=== PATIENT | male | born 1955 | race Two or more races ===

== ENCOUNTER 2018-02-09 22:39 | Emergency (ER) | payer OTHER ==
[~2018-02-09] VITALS: Ht 172.7 cm; Wt 77.1 kg
[2018-02-10] MEDS ORDERED: MORPHINE SULFATE 4 MG/ML SYR/VIAL IV ONE (00:45)
[2018-02-10] MEDS ORDERED: ONDANSETRON HCL 4 MG/2 ML VIAL IV ONE (00:45)
[2018-02-10 00:53] LABS: Basophils # (auto) 0 uL; Eosinophils # (auto) 0.1 uL; Monocytes # (auto) 0.4 uL
[2018-02-10 00:55] LABS: Basophils % (auto) 0.8 % (0.0-2.0); Eosinophils % (auto) 1.7 % (0.0-7.0); Hematocrit 38.5 % (41.0-53.0); Lymphocytes % (auto) 23.7 % (10.0-50.0); Mean Corpuscular Hemoglobin 34.4 pg (28.0-32.0); Mean Corpuscular Hgb Conc. 33.7 g/dL (32.0-36.0); Mean Corpuscular Volume 102.1 fL (80.0-100.0); Monocytes % (auto) 10.6 % (0.0-12.0); Neutrophils # (auto) 2.5 uL; Neutrophils % (auto) 63.2 % (37.0-80.0); Platelet Count (auto) 70 10^3/uL (140-450); Red Blood Cells 3.77 10^6/uL (4.5-5.90); Red Cell Distribution Width 14.5 % (11.8-14.3)
[2018-02-10 01:04] LABS: Albumin 2.2 g/dL (3.4-5.0); BUN/Creatinine Ratio 12.2; Calcium 7.9 mg/dL (8.5-10.1)
[2018-02-10 01:07] LABS: Bilirubin, Total 2.3 mg/dL (0.2-1.0); Total Protein 6.3 g/dL (6.4-8.2)
[2018-02-10 01:09] LABS: Potassium 2.9 mmol/L (3.5-5.1)
[2018-02-10] MEDS ORDERED: POTASSIUM CHL 20 Meq TABLET PO ONE (02:15)
[2018-02-10] MEDS ORDERED: SPIRONOLACTONE 25 MG TAB PO ONE (03:00)
[2018-02-10] MEDS ORDERED: FUROSEMIDE 40 MG/4 ML VIAL IV ONE (03:00)
[2018-02-10 03:49] LABS: INR 1.31 (0.9-1.15); Partial Thromboplastin Time 29.6 sec (23.78-33.04); Prothrombin Time 13.8 sec (9.27-12.13)
[2018-02-10 05:04] LABS: Urine Amorphous Crystal FEW /hpf (None Seen); Urine Bacteria FEW /hpf (None Seen); Urine Blood Negative /uL (Negative); Urine Mucus FEW (None Seen); Urine Specific Gravity 1.009 (1.001-1.035); Urine WBC <1 /hpf (0 - 3)
[2018-02-10] MEDS ORDERED: LACTULOSE 20Gm/30ML SOLN PO ONE (05:30)
[2018-02-10] MEDS ORDERED: IOHEXOL 350 MG/ML 100ML IJ ONE (05:38)
[2018-02-10 10:32] LABS: Albumin 2.3 g/dL (3.4-5.0); Calcium 8.1 mg/dL (8.5-10.1); Potassium 3.1 mmol/L (3.5-5.1)
[2018-02-10 10:36] LABS: BUN/Creatinine Ratio 15.1; Bilirubin, Total 2.7 mg/dL (0.2-1.0); Total Protein 6.1 g/dL (6.4-8.2)
[2018-02-10] MEDS ORDERED: POTASSIUM EFFERVESENT TAB 25 MEQ PO ONE (10:45)
[2018-02-10 12:24] VITALS: BP 162/92
== END 2018-02-10 12:39 | disposition short-term general hospital (02) ==
LOC: ER 22:39 → EDBD 22:39 → ER 02-10 12:39
DX: K72.90 Hepatic failure, unspecified without coma (principal); R41.82 Altered mental status, unspecified; E87.6 Hypokalemia; D68.9 Coagulation defect, unspecified; R79.1 Abnormal coagulation profile; D69.6 Thrombocytopenia, unspecified; I10 Essential (primary) hypertension; E07.89 Other specified disorders of thyroid
CPT/HCPCS: 36415; 71045; 71275; 74176; 80053; 81001; 82140; 83690; 83880; 84484; 85025; 85379; 85610; 85730; 96374; 96375; 99285; J1940; J2270; J2405; Q9967

== ENCOUNTER 2018-02-19 15:22 | Emergency (ER) | payer OTHER ==
[~2018-02-19] VITALS: Ht 170.2 cm; Wt 88.5 kg
[2018-02-19 16:08] LABS: Basophils # (auto) 0 uL; Basophils % (auto) 0.6 % (0.0-2.0); Eosinophils # (auto) 0 uL; Eosinophils % (auto) 0.5 % (0.0-7.0); Lymphocytes # (auto) 0.5 uL; Neutrophils # (auto) 5.8 uL; Nucleated Red Blood Cells % 0.1 %; White Blood Cell 6.8 10^3/uL (4.4-10.8)
[2018-02-19 16:09] LABS: Hematocrit 43.5 % (41.0-53.0); Lymphocytes % (auto) 7.1 % (10.0-50.0); Mean Corpuscular Hemoglobin 34.9 pg (28.0-32.0); Mean Corpuscular Hgb Conc. 34.6 g/dL (32.0-36.0); Mean Corpuscular Volume 101.1 fL (80.0-100.0); Monocytes # (auto) 0.4 uL; Monocytes % (auto) 6.4 % (0.0-12.0); Neutrophils % (auto) 85.4 % (37.0-80.0); Platelet Count (auto) 80 10^3/uL (140-450); Red Cell Distribution Width 14.5 % (11.8-14.3)
[2018-02-19 16:24] LABS: Albumin 2.6 g/dL (3.4-5.0); Anion Gap 8 (5-15); Blood Urea Nitrogen 11 mg/dL (7-18); Calcium 8.3 mg/dL (8.5-10.1); Carbon Dioxide 25 mmol/L (21-32); Chloride 102 mmol/L (98-107); Glucose 92 mg/dL (74-106); Potassium 3.9 mmol/L (3.5-5.1); Sodium 135 mmol/L (136-145)
[2018-02-19 16:29] LABS: Alanine Aminotransferase 57 U/L (16-61); Alkaline Phosphatase 130 U/L (45-117); Aspartate Aminotransferase 76 U/L (15-37); BUN/Creatinine Ratio 12.5; Bilirubin, Total 3.2 mg/dL (0.2-1.0); GFR African American 113 mL/min; GFR Non-African American 94 mL/min
[2018-02-19] MEDS ORDERED: MORPHINE SULFATE 4 MG/ML SYR/VIAL IV ONE (21:00)
[2018-02-19] MEDS ORDERED: ONDANSETRON HCL 4 MG/2 ML VIAL IV ONE (21:00)
[2018-02-19] MEDS ORDERED: SODIUM CHLORIDE 0.9% 1,000 ML IV ONE (21:30)
[2018-02-19] MEDS ORDERED: LACTULOSE 20Gm/30ML SOLN PO ONE (22:30)
[2018-02-20 00:03] LABS: INR 1.29 (0.9-1.15); Partial Thromboplastin Time 30.2 sec (23.78-33.04); Prothrombin Time 13.6 sec (9.27-12.13)
[2018-02-20 00:03] LABS: Urine Bacteria FEW /hpf (None Seen); Urine Blood Negative /uL (Negative); Urine Hyaline Cast FEW /lpf (0 - 2); Urine Mucus FEW (None Seen); Urine Specific Gravity 1.024 (1.001-1.035); Urine WBC 2 /hpf (0 - 3)
[2018-02-20 00:10] VITALS: BP 106/55
[2018-02-20 00:15] LABS: Alcohol, Urine < 3.0 mg/dL (0-5); Amphetamine Screen, Urine NEGATIVE (NEGATIVE); Barbiturate Scree,Urine NEGATIVE (NEGATIVE); Benzodiazephine Screen, Urine NEGATIVE (NEGATIVE); Cannabinoid Screen, Urine POSITIVE (NEGATIVE); Cocaine Screen, Urine NEGATIVE (NEGATIVE); Opiate Scree,Urine POSITIVE (NEGATIVE); Phencyclidine Screen, Urine NEGATIVE (NEGATIVE)
[2018-02-20] MEDS ORDERED: PROMETHAZINE HCL 25 MG/ML 1ML IM ONE (00:45)
== END 2018-02-20 01:00 | disposition home or self-care (01) ==
LOC: EDBD 15:22 → ER 15:22
DX: K29.70 Gastritis, unspecified, without bleeding (principal); K70.31 Alcoholic cirrhosis of liver with ascites; K80.20 Calculus of gallbladder without cholecystitis without obstruction; F10.10 Alcohol abuse, uncomplicated; I11.0 Hypertensive heart disease with heart failure; I50.9 Heart failure, unspecified; E07.89 Other specified disorders of thyroid; E78.5 Hyperlipidemia, unspecified; Y90.0 Blood alcohol level of less than 20 mg/100 ml
CPT/HCPCS: 36415; 74176; 80053; 80307; 80320; 81001; 82140; 83690; 84484; 85025; 85610; 85730; 93005; 96361; 96372; 96374; 96375; 99284; J2270; J2405; J2550; J7030

== ENCOUNTER 2018-03-29 17:17 | Emergency (ER) | payer OTHER ==
[~2018-03-29] VITALS: Ht 170.2 cm; Wt 81.6 kg
[2018-03-29 17:41] VITALS: BP 76/71
== END 2018-03-29 18:15 | disposition left against medical advice (07) ==
LOC: ER 17:17 → EDBD 17:17 → EDUNIT# 17:17 → ER 18:15
DX: R10.9 Unspecified abdominal pain (principal); K92.0 Hematemesis; Z53.21 Procedure and treatment not carried out due to patient leaving prior to being seen by health care provider
CPT/HCPCS: 93005

== ENCOUNTER 2018-04-01 08:05 | Inpatient (IN) | payer OTHER ==
[2018-04-01] VITALS (59 sets, daily range): BP systolic 32–167; BP diastolic 28–101
[~2018-04-01] VITALS: Ht 170.2 cm; Wt 103.0 kg
[2018-04-01] MEDS ORDERED: SODIUM CHLORIDE 0.9% 1,000 ML IV ONE ×2 (08:13)
[2018-04-01] MEDS ORDERED: PANTOPRAZOLE 80 MG in SODIUM CHL 0.9% 60 ML IV ONE (08:15)
[2018-04-01 08:31] LABS: Eosinophils # (auto) 0 uL; Monocytes # (auto) 0.7 uL; Nucleated Red Blood Cells % 0.2 %; Red Blood Cells 1.06 10^6/uL (4.0-5.20)
[2018-04-01 08:33] LABS: Basophils # (auto) 0.1 uL; Basophils % (auto) 0.8 % (0.0-2.0); Eosinophils % (auto) 0.2 % (0.0-7.0); Hematocrit 11.6 % (36.0-46.0); Lymphocytes % (auto) 26.5 % (10.0-50.0); Mean Corpuscular Hemoglobin 36.2 pg (28.0-32.0); Mean Corpuscular Volume 109.6 fL (80.0-100.0); Monocytes % (auto) 9.4 % (0.0-12.0); Neutrophils # (auto) 4.7 uL; Neutrophils % (auto) 63.1 % (37.0-80.0); Platelet Count (auto) 66 10^3/uL (140-450); Red Cell Distribution Width 17.9 % (11.8-14.3); White Blood Cell 7.5 10^3/uL (4.4-10.8)
[2018-04-01 08:48] LABS: BUN/Creatinine Ratio 28.8
[2018-04-01 08:51] LABS: Hemoglobin 3.8 g/dL (12.2-16.2)
[2018-04-01 08:52] LABS: Bilirubin, Total 1.5 mg/dL (0.2-1.0); Total Protein 3.4 g/dL (6.4-8.2)
[2018-04-01 08:53] LABS: INR 2.52 (0.9-1.15); Partial Thromboplastin Time 42.3 sec (23.78-33.04); Prothrombin Time 25.6 sec (9.27-12.13)
[2018-04-01] MEDS ORDERED: SUCCINYLCHOLINE CHLORIDE 20 MG/ML 10ML VIAL IV ONE ×2 (09:22→10:00)
[2018-04-01] MEDS ORDERED: ETOMIDATE (2MG/ML) 20ML VIAL IV ONE ×2 (09:22→10:00)
[2018-04-01] MEDS ORDERED: NOREPINEPHRINE 8 MG/250ML KIT 250 ML IV ONE (09:23)
[2018-04-01] MEDS ORDERED: MIDAZOLAM DRIP 50 mg/50mL 50 ML IV ONE ×2 (09:24→09:32)
[2018-04-01] MEDS: MIDAZOLAM DRIP 50 mg/50mL 50 ML IV SCH ×2 (09:32→23:27)
[2018-04-01] MEDS ORDERED: NOREPINEPHRINE 8 MG/250ML KIT 250 ML IV SCH (10:00)
[2018-04-01] MEDS ORDERED: HETASTARCH 500 ML IV ONE (11:00)
[2018-04-01] MEDS ORDERED: SODIUM BICARBONATE 8.4 % INJ 50ML VIAL IV ONE ×2 (11:00→16:45)
[2018-04-01] MEDS: NOREPINEPHRINE 8 MG/250ML KIT 250 ML IV SCH ×2 (11:11→19:55)
[2018-04-01] MEDS ORDERED: NITROGLYCERIN 0.4 MG SL TAB SL PRN (11:15)
[2018-04-01] MEDS ORDERED: SODIUM CHLORIDE 0.9% 1,000 ML IV SCH (11:15)
[2018-04-01] MEDS ORDERED: OCTREOTIDE ACETATE 100 MCG in SODIUM CHL 0.9% 50 ML IV ONE (11:15)
[2018-04-01] MEDS ORDERED: MORPHINE SULFATE 10 MG/ML INJ 1ML SDV IV PRN (11:15)
[2018-04-01] MEDS ORDERED: SODIUM CHLORIDE 0.9% 3,000 ML IV ONE (12:00)
[2018-04-01 12:33] LABS: Urine Bacteria NONE SEEN /hpf (None Seen); Urine Blood 2+ /uL (Negative); Urine Hyaline Cast MANY /lpf (0 - 2); Urine Mucus FEW (None Seen); Urine WBC 13 /hpf (0 - 5)
[2018-04-01] MEDS ORDERED: VASOPRESSIN 20 UNIT/ML ONE (13:20)
[2018-04-01] MEDS: VASOPRESSIN 50 UNITS in D5W 5% 247.5 ML IV SCH ×3 (13:30→19:35)
[2018-04-01] MEDS ORDERED: METOCLOPRAMIDE HCL 5MG/ml INJ 2ml VIAL IV ONE (13:45)
[2018-04-01] MEDS ORDERED: METOCLOPRAMIDE HCL 5MG/ml INJ 2ml VIAL ONE (13:53)
[2018-04-01] MEDS: fentaNYL Drip 2500mCg/250mlNS 250 ML IV SCH (14:07)
[2018-04-01] MEDS: OCTREOTIDE ACETATE 500 MCG in SODIUM CHL 0.9% 99 ML IV SCH ×2 (14:07→19:56)
[2018-04-01] MEDS ORDERED: LIDOCAINE VISCOUS 2% 15ML UD ONE (14:17)
[2018-04-01] MEDS ORDERED: fentaNYL CITRATE 100 MCG/2 ML VL ONE (14:17)
[2018-04-01] MEDS ORDERED: SODIUM CHLORIDE LOCK 0 ML ONE (14:17)
[2018-04-01] MEDS ORDERED: MIDAZOLAM HCL 5 MG/ML-1ML VIAL ONE (14:17)
[2018-04-01] MEDS ORDERED: SODIUM BICARBONATE 8.4% INJ 50ML SYRINGE ONE (16:33)
[2018-04-01] MEDS: PHENYLEPHRINE INJ 20 MG in SODIUM CHL 0.9% 250 ML IV SCH ×2 (16:56→19:31)
[2018-04-01] MEDS: cefTRIAXone 1GM/50ML D5W 50 ML IV SCH (16:57)
[2018-04-01] MEDS: PANTOPRAZOLE 40 MG/10 ML VIAL IV SCH ×2 (16:57→22:49)
[2018-04-01 18:02] LABS: Basophils # (auto) 0 uL; Eosinophils # (auto) 0 uL; Lymphocytes # (auto) 0.9 uL; Mean Corpuscular Hemoglobin 32.3 pg (28.0-32.0); Red Blood Cells 1.92 10^6/uL (4.5-5.90)
[2018-04-01 18:03] LABS: Basophils % (auto) 0.1 % (0.0-2.0); Hematocrit 18.2 % (41.0-53.0); Mean Corpuscular Hgb Conc. 34.2 g/dL (32.0-36.0); Mean Corpuscular Volume 94.7 fL (80.0-100.0); Monocytes % (auto) 8.3 % (0.0-12.0); Neutrophils # (auto) 9.9 uL; Neutrophils % (auto) 83.6 % (37.0-80.0); Platelet Count (auto) 67 10^3/uL (140-450); Red Cell Distribution Width 15.8 % (11.8-14.3); White Blood Cell 11.8 10^3/uL (4.4-10.8)
[2018-04-01 18:14] LABS: Hemoglobin 6.2 g/dL (13.5-17.5)
[2018-04-01 18:15] LABS: Calcium 6.2 mg/dL (8.5-10.1); Potassium 3.9 mmol/L (3.5-5.1)
[2018-04-01 18:16] LABS: INR 1.96 (0.9-1.15); Prothrombin Time 20.2 sec (9.27-12.13)
[2018-04-01 18:18] LABS: Lactic Acid w/Reflex 13.4 mmol/L (0.4-2.0)
[2018-04-01 18:25] LABS: BUN/Creatinine Ratio 25.9; Bilirubin, Total 3.3 mg/dL (0.2-1.0); Total Protein 3.5 g/dL (6.4-8.2)
[2018-04-01] MEDS ORDERED: SODIUM BICARBONATE 8.4% INJ 50ML SYRINGE IV ONE (18:25)
[2018-04-01] MEDS: LACTATED RINGER'S 1,000 ML IV SCH (18:53)
[2018-04-02] VITALS (87 sets, daily range): BP systolic 81–191; BP diastolic 40–185
[2018-04-02] MEDS ORDERED: TRAZ-220 PO (00:17)
[2018-04-02] MEDS ORDERED: LEVO200T7 PO (00:55)
[2018-04-02] MEDS ORDERED: FURO40TA4 PO (00:55)
[2018-04-02] MEDS ORDERED: SPIR50TA5 PO (00:55)
[2018-04-02] MEDS ORDERED: HYDR-4902 PO (00:55)
[2018-04-02] MEDS ORDERED: METR500T PO (00:55)
[2018-04-02] MEDS: VASOPRESSIN 50 UNITS in D5W 5% 247.5 ML IV SCH ×6 (01:51→20:35)
[2018-04-02] MEDS: fentaNYL Drip 2500mCg/250mlNS 250 ML IV SCH (01:52)
[2018-04-02 03:47] LABS: Eosinophils # (auto) 0 uL; Eosinophils % (auto) 0.3 % (0.0-7.0); Hemoglobin 8.1 g/dL (13.5-17.5); Nucleated Red Blood Cells % 0.1 %; Red Cell Distribution Width 15.1 % (11.8-14.3)
[2018-04-02] MEDS: PHENYLEPHRINE INJ 20 MG in SODIUM CHL 0.9% 250 ML IV SCH ×3 (03:51→20:31)
[2018-04-02 03:52] LABS: Basophils # (auto) 0 uL; Basophils % (auto) 0.5 % (0.0-2.0); Hematocrit 22.7 % (41.0-53.0); Lymphocytes % (auto) 12.6 % (10.0-50.0); Mean Corpuscular Hemoglobin 32.7 pg (28.0-32.0); Mean Corpuscular Hgb Conc. 35.8 g/dL (32.0-36.0); Mean Corpuscular Volume 91.5 fL (80.0-100.0); Monocytes # (auto) 0.5 uL; Monocytes % (auto) 6.3 % (0.0-12.0); Neutrophils # (auto) 6.6 uL; Neutrophils % (auto) 80.3 % (37.0-80.0); Platelet Count (auto) 62 10^3/uL (140-450); Red Blood Cells 2.48 10^6/uL (4.5-5.90); White Blood Cell 8.2 10^3/uL (4.4-10.8)
[2018-04-02 03:57] LABS: Potassium 3.7 mmol/L (3.5-5.1)
[2018-04-02 04:05] LABS: INR 1.89 (0.9-1.15); Partial Thromboplastin Time 28.8 sec (23.78-33.04); Prothrombin Time 19.5 sec (9.27-12.13)
[2018-04-02 04:16] LABS: Albumin 2.3 g/dL (3.4-5.0); BUN/Creatinine Ratio 32.3; Bilirubin, Total 3.5 mg/dL (0.2-1.0); Calcium 6.4 mg/dL (8.5-10.1)
[2018-04-02] MEDS: OCTREOTIDE ACETATE 500 MCG in SODIUM CHL 0.9% 99 ML IV SCH ×2 (04:51→16:00)
[2018-04-02] MEDS: MIDAZOLAM DRIP 50 mg/50mL 50 ML IV SCH ×4 (04:52→23:33)
[2018-04-02] MEDS: NOREPINEPHRINE 8 MG/250ML KIT 250 ML IV SCH ×2 (04:52→22:12)
[2018-04-02] MEDS: LACTATED RINGER'S 1,000 ML IV SCH ×2 (04:52→15:00)
[2018-04-02] MEDS: cefTRIAXone 1GM/50ML D5W 50 ML IV SCH (09:06)
[2018-04-02] MEDS: PANTOPRAZOLE 40 MG/10 ML VIAL IV SCH ×2 (09:07→22:09)
[2018-04-02 11:24] LABS: Hematocrit 20.9 % (41.0-53.0); Hemoglobin 7.3 g/dL (13.5-17.5)
[2018-04-02] MEDS ORDERED: VANCOMYCIN PER PHARMACY 0 MG IV SCH (12:15)
[2018-04-02] MEDS ORDERED: PHYTONADIONE (VIT K)10 MG/ML 1ML VIAL SUBCUT ONE (12:15)
[2018-04-02] MEDS: VANCOMYCIN 1,250 MG in D5W 5% 250 ML IV SCH (14:30)
[2018-04-02 23:25] LABS: Hematocrit 24.3 % (41.0-53.0); Hemoglobin 8.4 g/dL (13.5-17.5)
[2018-04-03] VITALS (109 sets, daily range): BP systolic 95–132; BP diastolic 54–78
[2018-04-03] MEDS: LACTATED RINGER'S 1,000 ML IV SCH ×3 (00:24→21:11)
[2018-04-03] MEDS: VASOPRESSIN 50 UNITS in D5W 5% 247.5 ML IV SCH ×6 (00:45→21:35)
[2018-04-03] MEDS: OCTREOTIDE ACETATE 500 MCG in SODIUM CHL 0.9% 99 ML IV SCH ×3 (02:00→21:06)
[2018-04-03] MEDS: VANCOMYCIN 1,250 MG in D5W 5% 250 ML IV SCH ×2 (02:00→14:20)
[2018-04-03 03:59] LABS: Platelet Count (auto) 36 10^3/uL (140-450); White Blood Cell 4.8 10^3/uL (4.4-10.8)
[2018-04-03 04:03] LABS: Hematocrit 23.5 % (41.0-53.0); Hemoglobin 8.3 g/dL (13.5-17.5); Mean Corpuscular Hemoglobin 32.8 pg (28.0-32.0); Mean Corpuscular Hgb Conc. 35.4 g/dL (32.0-36.0); Mean Corpuscular Volume 92.5 fL (80.0-100.0); Red Blood Cells 2.54 10^6/uL (4.5-5.90); Red Cell Distribution Width 15.3 % (11.8-14.3)
[2018-04-03 04:15] LABS: INR 1.75 (0.9-1.15); Partial Thromboplastin Time 34.2 sec (23.78-33.04); Prothrombin Time 18.1 sec (9.27-12.13)
[2018-04-03 04:18] LABS: Calcium 6.5 mg/dL (8.5-10.1); Potassium 3.1 mmol/L (3.5-5.1)
[2018-04-03 04:29] LABS: Albumin 2.4 g/dL (3.4-5.0); BUN/Creatinine Ratio 33.8; Bilirubin, Total 3.6 mg/dL (0.2-1.0); Total Protein 4.1 g/dL (6.4-8.2)
[2018-04-03] MEDS: PHENYLEPHRINE INJ 20 MG in SODIUM CHL 0.9% 250 ML IV SCH ×3 (04:51→21:31)
[2018-04-03] MEDS: MIDAZOLAM DRIP 50 mg/50mL 50 ML IV SCH ×3 (04:52→21:06)
[2018-04-03] MEDS: fentaNYL Drip 2500mCg/250mlNS 250 ML IV SCH ×2 (05:24→19:01)
[2018-04-03 05:32] LABS: Band Neutrophils % (manual) 0; Basophils % (manual) 0 (0.0-2.0); Blast Cells 0; Eosinophils % (manual) 0 (0-7); Metamyelocytes % 0; Myelocytes % 0; Promyelocytes % 0; Reactive Lymphocytes 0
[2018-04-03] MEDS ORDERED: CALCIUM GLUC 4.65meq/50ml D5AE 50 ML IV ONE (07:00)
[2018-04-03] MEDS ORDERED: POTASSIUM CHL 20MEQ/100ML 100 ML IV ONE (07:00)
[2018-04-03 08:45] LABS: Lymphocytes % (manual) 21 (10.0-50.0); Monocytes % (manual) 9 (0-12)
[2018-04-03] MEDS: cefTRIAXone 1GM/50ML D5W 50 ML IV SCH (08:47)
[2018-04-03] MEDS: PANTOPRAZOLE 40 MG/10 ML VIAL IV SCH ×2 (10:05→22:00)
[2018-04-03] MEDS: NOREPINEPHRINE 8 MG/250ML KIT 250 ML IV SCH (21:06)
[2018-04-04] VITALS (107 sets, daily range): BP systolic 92–146; BP diastolic 49–102
[2018-04-04 00:50] LABS: BUN/Creatinine Ratio 30.9; Potassium 3.4 mmol/L (3.5-5.1)
[2018-04-04] MEDS: VASOPRESSIN 50 UNITS in D5W 5% 247.5 ML IV SCH ×6 (01:45→22:35)
[2018-04-04 03:53] LABS: Hematocrit 24.6 % (41.0-53.0); Hemoglobin 8.5 g/dL (13.5-17.5); Mean Corpuscular Hemoglobin 32.8 pg (28.0-32.0); Mean Corpuscular Hgb Conc. 34.7 g/dL (32.0-36.0); Mean Corpuscular Volume 94.7 fL (80.0-100.0); Platelet Count (auto) 44 10^3/uL (140-450); Red Cell Distribution Width 16.7 % (11.8-14.3); White Blood Cell 4.2 10^3/uL (4.4-10.8)
[2018-04-04 03:55] LABS: Basophils % (manual) 0 (0.0-2.0); Blast Cells 0; Metamyelocytes % 0; Myelocytes % 0; Promyelocytes % 0; Reactive Lymphocytes 0
[2018-04-04 04:51] LABS: Eosinophils % (manual) 4 (0-7); Lymphocytes % (manual) 14 (10.0-50.0); Monocytes % (manual) 14 (0-12)
[2018-04-04 04:52] LABS: Band Neutrophils % (manual) 1
[2018-04-04] MEDS: VANCOMYCIN 1,250 MG in D5W 5% 250 ML IV SCH (05:04)
[2018-04-04] MEDS: MIDAZOLAM DRIP 50 mg/50mL 50 ML IV SCH (05:08)
[2018-04-04] MEDS: PHENYLEPHRINE INJ 20 MG in SODIUM CHL 0.9% 250 ML IV SCH ×3 (05:51→22:31)
[2018-04-04] MEDS ORDERED: EPINEPHrine HCL 1 MG/10 ML SYRG ONE (08:24)
[2018-04-04] MEDS ORDERED: BENZOCAINE (DENTAL) 20 % SPRAY 60ML MT ONE (08:24)
[2018-04-04] MEDS ORDERED: SODIUM CHLORIDE LOCK 0 ML ONE (08:24)
[2018-04-04] MEDS ORDERED: fentaNYL CITRATE 100 MCG/2 ML VL ONE (08:25)
[2018-04-04] MEDS ORDERED: MIDAZOLAM HCL 5 MG/ML-1ML VIAL ONE (08:25)
[2018-04-04] MEDS ORDERED: diphenhdrAMINE HCL 50 MG/1 ML VL ONE (08:25)
[2018-04-04] MEDS: cefTRIAXone 1GM/50ML D5W 50 ML IV SCH (08:29)
[2018-04-04] MEDS: LACTATED RINGER'S 1,000 ML IV SCH ×2 (08:30→18:00)
[2018-04-04] MEDS: fentaNYL Drip 2500mCg/250mlNS 250 ML IV SCH (08:36)
[2018-04-04] MEDS: PANTOPRAZOLE 40 MG/10 ML VIAL IV SCH ×2 (10:12→22:10)
[2018-04-04] MEDS ORDERED: FUROSEMIDE 40 MG/4 ML VIAL IV ONE (11:00)
[2018-04-04] MEDS: ALBUMIN 25% 100 ML IV SCH ×2 (11:48→20:00)
[2018-04-04] MEDS: OCTREOTIDE ACETATE 500 MCG in SODIUM CHL 0.9% 99 ML IV SCH ×2 (14:17→22:10)
[2018-04-04] MEDS: VANCOMYCIN 1,500 MG in D5W 5% 250 ML IV SCH (17:58)
[2018-04-04] MEDS ORDERED: TPN PER PHARMACY 0 ML IV SCH (18:15)
[2018-04-04] MEDS ORDERED: DEXTROSE (50%) 50ML SYRG IV SCH (20:15)
[2018-04-04] MEDS: CLINIMIX PER PHARMACY IV NR (22:11)
[2018-04-04] MEDS: ACCU-CHEK COMFORT CURVE STRIP VI SCH (23:44)
[2018-04-04] MEDS: InsuLIN REG 1unit/0.01ml Soln (100units/ml) SC SCH (23:44)
[2018-04-05] VITALS (102 sets, daily range): BP systolic 83–121; BP diastolic 47–69
[2018-04-05] MEDS: VASOPRESSIN 50 UNITS in D5W 5% 247.5 ML IV SCH ×3 (02:45→11:05)
[2018-04-05] MEDS: ALBUMIN 25% 100 ML IV SCH (03:26)
[2018-04-05] MEDS: LACTATED RINGER'S 1,000 ML IV SCH ×3 (03:30→15:00)
[2018-04-05 04:08] LABS: Basophils # (auto) 0 uL; Eosinophils # (auto) 0.1 uL; Lymphocytes # (auto) 0.6 uL; Mean Corpuscular Hemoglobin 32.8 pg (28.0-32.0); Mean Corpuscular Volume 94.4 fL (80.0-100.0); Monocytes # (auto) 0.4 uL; Neutrophils # (auto) 1.6 uL; Red Blood Cells 2.44 10^6/uL (4.5-5.90); White Blood Cell 2.8 10^3/uL (4.4-10.8)
[2018-04-05 04:10] LABS: Basophils % (auto) 0.9 % (0.0-2.0); Eosinophils % (auto) 4.5 % (0.0-7.0); Hematocrit 23.1 % (41.0-53.0); Mean Corpuscular Hgb Conc. 34.7 g/dL (32.0-36.0); Monocytes % (auto) 15.6 % (0.0-12.0); Nucleated Red Blood Cells % 0.3 %; Platelet Count (auto) 61 10^3/uL (140-450); Red Cell Distribution Width 16.6 % (11.8-14.3)
[2018-04-05 04:17] LABS: Albumin 2.4 g/dL (3.4-5.0); Calcium 6.9 mg/dL (8.5-10.1); Magnesium 1.9 mg/dL (1.6-2.6); Potassium 3.2 mmol/L (3.5-5.1)
[2018-04-05 04:24] LABS: BUN/Creatinine Ratio 36.9; Bilirubin, Total 3.3 mg/dL (0.2-1.0); Phosphorus 1.9 mg/dL (2.5-4.90); Total Protein 4.1 g/dL (6.4-8.2)
[2018-04-05] MEDS ORDERED: POTASSIUM CHL 20MEQ/100ML 100 ML IV ONE ×2 (05:07→05:15)
[2018-04-05] MEDS: InsuLIN REG 1unit/0.01ml Soln (100units/ml) SC SCH ×4 (05:18→23:31)
[2018-04-05] MEDS: ACCU-CHEK COMFORT CURVE STRIP VI SCH ×4 (05:18→23:31)
[2018-04-05] MEDS: VANCOMYCIN 1,500 MG in D5W 5% 250 ML IV SCH (05:20)
[2018-04-05] MEDS: PHENYLEPHRINE INJ 20 MG in SODIUM CHL 0.9% 250 ML IV SCH ×2 (05:25→14:32)
[2018-04-05] MEDS: OCTREOTIDE ACETATE 500 MCG in SODIUM CHL 0.9% 99 ML IV SCH (08:15)
[2018-04-05] MEDS: cefTRIAXone 1GM/50ML D5W 50 ML IV SCH (09:00)
[2018-04-05] MEDS: PANTOPRAZOLE 40 MG/10 ML VIAL IV SCH ×2 (10:00→21:27)
[2018-04-05] MEDS: MIDAZOLAM DRIP 50 mg/50mL 50 ML IV SCH (10:00)
[2018-04-05] MEDS: NOREPINEPHRINE 8 MG/250ML KIT 250 ML IV SCH (11:25)
[2018-04-05] MEDS: fentaNYL Drip 2500mCg/250mlNS 250 ML IV SCH (13:16)
[2018-04-05] MEDS ORDERED: LACTULOSE 20Gm/30ML SOLN PO SCH (18:00)
[2018-04-05] MEDS: CLINIMIX PER PHARMACY IV NR (19:49)
[2018-04-05] MEDS ORDERED: TPN PER PHARMACY IV NR ×7 (20:00)
[2018-04-05] MEDS: LACTULOSE 20Gm/30ML SOLN PR SCH (20:37)
[2018-04-06] VITALS (104 sets, daily range): BP systolic 83–138; BP diastolic 41–71
[2018-04-06] MEDS ORDERED: LACTULOSE 20Gm/30ML SOLN PR SCH ×2
[2018-04-06] MEDS: LACTULOSE 20Gm/30ML SOLN PR SCH ×5 (02:14→23:21)
[2018-04-06 04:47] LABS: Basophils # (auto) 0 uL; Eosinophils # (auto) 0.1 uL; Hemoglobin 8.8 g/dL (13.5-17.5); Neutrophils # (auto) 1.6 uL; Nucleated Red Blood Cells % 0.2 %; Platelet Count (auto) 55 10^3/uL (140-450); White Blood Cell 2.8 10^3/uL (4.4-10.8)
[2018-04-06 04:49] LABS: Basophils % (auto) 0.5 % (0.0-2.0); Eosinophils % (auto) 4.4 % (0.0-7.0); Hematocrit 25.5 % (41.0-53.0); Lymphocytes # (auto) 0.7 uL; Mean Corpuscular Hgb Conc. 34.5 g/dL (32.0-36.0); Mean Corpuscular Volume 95.7 fL (80.0-100.0); Monocytes # (auto) 0.4 uL; Monocytes % (auto) 14.5 % (0.0-12.0); Neutrophils % (auto) 57.6 % (37.0-80.0); Red Blood Cells 2.66 10^6/uL (4.5-5.90); Red Cell Distribution Width 16.9 % (11.8-14.3)
[2018-04-06 05:06] LABS: Albumin 2.3 g/dL (3.4-5.0); BUN/Creatinine Ratio 39.3; Calcium 6.9 mg/dL (8.5-10.1); Magnesium 1.9 mg/dL (1.6-2.6); Potassium 3.4 mmol/L (3.5-5.1)
[2018-04-06 05:11] LABS: Bilirubin, Total 3.2 mg/dL (0.2-1.0); Phosphorus 2.1 mg/dL (2.5-4.90)
[2018-04-06] MEDS: ACCU-CHEK COMFORT CURVE STRIP VI SCH ×4 (05:24→23:20)
[2018-04-06] MEDS: InsuLIN REG 1unit/0.01ml Soln (100units/ml) SC SCH ×4 (05:25→23:20)
[2018-04-06] MEDS: LACTATED RINGER'S 1,000 ML IV SCH (05:57)
[2018-04-06] MEDS: cefTRIAXone 1GM/50ML D5W 50 ML IV SCH (09:00)
[2018-04-06] MEDS: PANTOPRAZOLE 40 MG/10 ML VIAL IV SCH ×2 (09:33→21:35)
[2018-04-06] MEDS ORDERED: POTASSIUM PHOSPHATE 22 MEQ in SODIUM CHL 0.9% 100 ML IV ONE (13:00)
[2018-04-06] MEDS: fentaNYL Drip 2500mCg/250mlNS 250 ML IV SCH (13:16)
[2018-04-06] MEDS ORDERED: CALCIUM GLUC 4.65meq/50ml D5AE 50 ML IV ONE (13:30)
[2018-04-06] MEDS: NOREPINEPHRINE 8 MG/250ML KIT 250 ML IV SCH (17:55)
[2018-04-06] MEDS ORDERED: TPN PER PHARMACY IV NR ×9 (20:00)
[2018-04-06] MEDS ORDERED: PROPOFOL 100 ML IV ONE (21:57)
[2018-04-06] MEDS ORDERED: FUROSEMIDE 20 MG/2 ML VIAL ONE (21:57)
[2018-04-06] MEDS: PROPOFOL 100 ML IV SCH (22:00)
[2018-04-06] MEDS ORDERED: FUROSEMIDE 20 MG/2 ML VIAL IV ONE (22:00)
[2018-04-07] VITALS (92 sets, daily range): BP systolic 80–151; BP diastolic 45–82
[2018-04-07] MEDS: LACTATED RINGER'S 1,000 ML IV SCH ×2 (00:30→17:00)
[2018-04-07 04:47] LABS: Alanine Aminotransferase 155 U/L (16-61); Albumin 2.1 g/dL (3.4-5.0); Alkaline Phosphatase 69 U/L (45-117); Anion Gap 4 (5-15); Aspartate Aminotransferase 196 U/L (15-37); BUN/Creatinine Ratio 38.3; Bilirubin, Total 3.1 mg/dL (0.2-1.0); Blood Urea Nitrogen 23 mg/dL (7-18); Carbon Dioxide 26 mmol/L (21-32); Chloride 114 mmol/L (98-107); Glucose 110 mg/dL (74-106); Magnesium 2.1 mg/dL (1.6-2.6); Phosphorus 2.5 mg/dL (2.5-4.90); Potassium 3.2 mmol/L (3.5-5.1); Sodium 144 mmol/L (136-145)
[2018-04-07 05:06] LABS: GFR African American > 60 mL/min; GFR Non-African American > 60 mL/min
[2018-04-07] MEDS: ACCU-CHEK COMFORT CURVE STRIP VI SCH ×3 (05:56→17:35)
[2018-04-07] MEDS: InsuLIN REG 1unit/0.01ml Soln (100units/ml) SC SCH ×3 (05:56→17:35)
[2018-04-07] MEDS: LACTULOSE 20Gm/30ML SOLN PR SCH ×3 (05:57→17:35)
[2018-04-07] MEDS ORDERED: POTASSIUM PHOSP 22MEQ(15MMOLE) in NS 100 ML IV ONE (09:00)
[2018-04-07] MEDS: cefTRIAXone 1GM/50ML D5W 50 ML IV SCH (09:07)
[2018-04-07] MEDS: PANTOPRAZOLE 40 MG/10 ML VIAL IV SCH (10:01)
[2018-04-07] MEDS: PROPOFOL 100 ML IV SCH ×4 (10:17→21:09)
[2018-04-07] MEDS: ALBUMIN 25% 100 ML IV SCH ×2 (10:45→17:36)
[2018-04-07 11:34] LABS: INR 1.62 (0.9-1.15); Prothrombin Time 16.9 sec (9.27-12.13)
[2018-04-07] MEDS ORDERED: fentaNYL Drip 2500mCg/250mlNS 250 ML IV SCH (13:16)
[2018-04-07 16:45] LABS: Hepatitis B Surface Antigen Negative (Negative)
[2018-04-07 16:48] LABS: Hepatitis C Antibody Positive (Negative)
[2018-04-07] MEDS: NOREPINEPHRINE 8 MG/250ML KIT 250 ML IV SCH (17:35)
[2018-04-07] MEDS ORDERED: TPN PER PHARMACY IV NR ×8 (20:00)
[2018-04-08] MEDS ORDERED: FUROSEMIDE 40 MG/4 ML VIAL IV SCH (10:00)
== END 2018-04-07 21:10 | disposition short-term general hospital (02) | DRG 207 ==
LOC: EDBD 08:05 → ER 08:11 → EDBD 08:11 → ICU WEST 13:10 → MERGE 13:10 → EDBD 13:10
PROVIDERS: ADMIT Nurse Practitioner Acute Care; ATTEND Internal Medicine
PROC: 5A1955Z Respiratory Ventilation, Greater than 96 Consecutive Hours (ICD-10-PCS; 2018-04-01)
PROC: 30233K1 Transfusion of Nonautologous Frozen Plasma into Peripheral Vein, Percutaneous Approach (ICD-10-PCS; 2018-04-01)
PROC: 30233N1 Transfusion of Nonautologous Red Blood Cells into Peripheral Vein, Percutaneous Approach (ICD-10-PCS; 2018-04-01)
PROC: 30233R1 Transfusion of Nonautologous Platelets into Peripheral Vein, Percutaneous Approach (ICD-10-PCS; 2018-04-01)
PROC: 0BH17EZ Insertion of Endotracheal Airway into Trachea, Via Natural or Artificial Opening (ICD-10-PCS; 2018-04-01)
PROC: 06L38CZ Occlusion of Esophageal Vein with Extraluminal Device, Via Natural or Artificial Opening Endoscopic (ICD-10-PCS; principal; 2018-04-01 14:15)
PROC: 06L38CZ Occlusion of Esophageal Vein with Extraluminal Device, Via Natural or Artificial Opening Endoscopic (ICD-10-PCS; 2018-04-04)
PROC: 02HV33Z Insertion of Infusion Device into Superior Vena Cava, Percutaneous Approach (ICD-10-PCS; 2018-04-04)
PROC: 0W9G3ZZ Drainage of Peritoneal Cavity, Percutaneous Approach (ICD-10-PCS; 2018-04-04)
PROC: 0W9G3ZZ Drainage of Peritoneal Cavity, Percutaneous Approach (ICD-10-PCS; 2018-04-07)
DX: J96.00 Acute respiratory failure, unspecified whether with hypoxia or hypercapnia (principal); G93.41 Metabolic encephalopathy; N17.0 Acute kidney failure with tubular necrosis; R57.1 Hypovolemic shock; I85.11 Secondary esophageal varices with bleeding; E43 Unspecified severe protein-calorie malnutrition; B15.9 Hepatitis A without hepatic coma; D62 Acute posthemorrhagic anemia; D68.9 Coagulation defect, unspecified; E87.0 Hyperosmolality and hypernatremia; E87.2 Acidosis; I13.0 Hypertensive heart and chronic kidney disease with heart failure and stage 1 through stage 4 chronic kidney disease, or unspecified chronic kidney disease; K76.6 Portal hypertension; R65.10 Systemic inflammatory response syndrome (SIRS) of non-infectious origin without acute organ dysfunction; R18.8 Other ascites; E72.20 Disorder of urea cycle metabolism, unspecified; E03.9 Hypothyroidism, unspecified; I50.9 Heart failure, unspecified; K42.9 Umbilical hernia without obstruction or gangrene; N18.9 Chronic kidney disease, unspecified; K31.89 Other diseases of stomach and duodenum; I70.0 Atherosclerosis of aorta; K59.00 Constipation, unspecified; D69.6 Thrombocytopenia, unspecified; R16.0 Hepatomegaly, not elsewhere classified; K74.60 Unspecified cirrhosis of liver; K80.20 Calculus of gallbladder without cholecystitis without obstruction; Z79.899 Other long term (current) drug therapy; Z68.35 Body mass index [BMI] 35.0-35.9, adult
CPT/HCPCS: 10022; 36415; 36600; 71045; 74176; 76604; 76705; 76942; 80048; 80053; 80202; 81001; 82040; 82140; 82150; 82533; 82805; 82962; 83605; 83690; 83735; 83880; 84100; 84443; 84478; 84484; 85007; 85014; 85018; 85025; 85027; 85610; 85730; 86803; 86850; 86900; 86901; 86920; 87040; 87070; 87081; 87205; 87340; 89051; 94002; 94003; A6257; C9113; G0378; J0330; J0610; J0696; J1815; J2250; J2704; J3430; J3480; J7060; P9047